=== PATIENT | female | born 1975 | race Caucasian/White ===

== ENCOUNTER 2017-02-06 14:55 | Emergency (ER) | payer OTHER ==
[~2017-02-06] VITALS: Ht 170.2 cm; Wt 88.5 kg
[2017-02-06 17:20] LABS: ADD MIUA? YES; BILIRUBIN NEGATIVE; BLOOD SMALL; COLOR YELLOW ((YELLOW)); GLUCOSE (STRIP) NEGATIVE; KETONES NEGATIVE; LEUKOCYTES TRACE; NITRITE NEGATIVE; PROTEIN (STRIP) NEGATIVE; SPECIFIC GRAVITY 1.018 (1.000-1.030); UROBILINOGEN 0.2 MG/DL (0.2-1.0)
[2017-02-06 17:27] LABS: BACTERIA NONE SEEN /HPF; EPITHELIAL CELLS RARE /HPF; MUCUS TRACE /LPF; RED BLOOD CELLS 0-5 /HPF (0-5); WHITE BLOOD CELLS 0-5 /HPF (0-5)
[2017-02-06] MEDS ORDERED: IMITREX50 MG PO (18:04)
[2017-02-06] MEDS ORDERED: FIORICET 50-301 EACH PO (18:04)
[2017-02-06] MEDS ORDERED: NAPROSYN500 MG PO (18:04)
[2017-02-06 18:43] VITALS: BP 120/66
== END 2017-02-06 18:45 | disposition home or self-care (01) ==
LOC: EXP 14:55 → EME 14:55 → EXP 18:45
PROVIDERS: Physician Assistant
DX: G43.909 Migraine, unspecified, not intractable, without status migrainosus (principal); F17.200 Nicotine dependence, unspecified, uncomplicated
CPT/HCPCS: 81003; 99281; 99285; J1200; J1885; J2765; J2930; J7030

== ENCOUNTER 2017-06-06 10:15 | Emergency (ER) | payer OTHER ==
[~2017-06-06] VITALS: Ht 170.2 cm; Wt 85.3 kg
[~2017-06-06 10:15] MED LIST: FIORICET 50-301 EACH PO; IMITREX50 MG PO; NAPROSYN500 MG PO
[2017-06-06] MEDS ORDERED: ABILIFY5 MG PO ×2 (11:41→12:07)
[2017-06-06] MEDS ORDERED: CYMBALTA20 MG PO ×2 (11:41→12:07)
[2017-06-06] MEDS ORDERED: VISTARIL25 MG PO (12:07)
[2017-06-06 12:29] VITALS: BP 123/80
== END 2017-06-06 12:31 | disposition home or self-care (01) ==
LOC: EME 10:15
DX: Z76.0 Encounter for issue of repeat prescription (principal); F31.9 Bipolar disorder, unspecified; F41.9 Anxiety disorder, unspecified; F17.200 Nicotine dependence, unspecified, uncomplicated
CPT/HCPCS: 90832; 99281; 99284

== ENCOUNTER 2017-06-13 09:14 | Emergency (ER) | payer OTHER ==
[~2017-06-13] VITALS: Ht 170.2 cm; Wt 84.7 kg
[~2017-06-13 09:14] MED LIST changes: +ABILIFY5 MG PO; +CYMBALTA20 MG PO; +VISTARIL25 MG PO
[2017-06-13] MEDS ORDERED: IMITREX25 MG PO (11:11)
[2017-06-13] MEDS ORDERED: REGLAN10 MG PO (11:11)
[2017-06-13 11:30] VITALS: BP 119/71
== END 2017-06-13 11:32 | disposition home or self-care (01) ==
LOC: EME 09:14
DX: G43.909 Migraine, unspecified, not intractable, without status migrainosus (principal); F17.200 Nicotine dependence, unspecified, uncomplicated
CPT/HCPCS: 99281; 99284; J2765; J3030

== ENCOUNTER 2017-08-19 17:29 | Emergency (ER) | payer OTHER ==
[~2017-08-19] VITALS: Ht 170.2 cm; Wt 87.0 kg
[~2017-08-19 17:29] MED LIST changes: +IMITREX25 MG PO; +REGLAN10 MG PO
[2017-08-19] MEDS ORDERED: NORCO 5/3251 TABLET PO (19:34)
[2017-08-19 19:44] VITALS: BP 131/70
== END 2017-08-19 19:44 | disposition home or self-care (01) ==
LOC: EME 17:29
DX: S80.01XA Contusion of right knee, initial encounter (principal); W18.2XXA Fall in (into) shower or empty bathtub, initial encounter; Y93.E1 Activity, personal bathing and showering; Z98.890 Other specified postprocedural states; F41.9 Anxiety disorder, unspecified; F17.200 Nicotine dependence, unspecified, uncomplicated
CPT/HCPCS: 73564; 99281; 99284

== ENCOUNTER 2017-10-18 04:42 | Emergency (ER) | payer OTHER ==
[~2017-10-18] VITALS: Ht 170.2 cm; Wt 86.5 kg
[~2017-10-18 04:42] MED LIST changes: +NORCO 5/3251 TABLET PO
[2017-10-18 05:01] LABS: HEMATOCRIT 39.6 % (36.0-46.0); HEMOGLOBIN 13.8 G/DL (11.9-15.5); MCH 31.5 PG (29.0-34.0); MCHC 34.8 G/DL (30.0-36.0); MCV 90.4 FL (83-99); PLATELET COUNT 204 K/uL (156-360); RBC DIS.WIDTH-CV 12.6 % (11.8-14.6); RBC DIS.WIDTH-SD 41.6 % (39-53); RED BLOOD COUNT 4.38 M/uL (3.80-5.20); WHITE BLOOD COUNT 8.9 K/uL (4.1-10.2)
[2017-10-18 05:10] LABS: ALBUMIN 4.1 g/dL (3.2-4.8); CHLORIDE 108 mEq/L (99-109); POTASSIUM 3.8 mEq/L (3.7-5.4); SODIUM 143 mEq/L (136-147)
[2017-10-18 05:12] LABS: GLUCOSE 133 mg/dL (70-99); TOTAL PROTEIN 6.9 g/dL (6.4-8.3)
[2017-10-18 05:14] LABS: TOTAL BILIRUBIN 0.2 mg/dL (0.0-1.0)
[2017-10-18 05:16] LABS: ALKALINE PHOSPHATASE 91 IU/L (3-129); CREATININE 0.7 mg/dL (0.6-1.3); GFR ESTIMATE (CALCULATED) > 59 mL/min/
[2017-10-18 05:17] LABS: UREA NITROGEN (BUN) 16 mg/dL (9-23)
[2017-10-18 05:18] LABS: AST (GOT) 9 IU/L (2-34)
[2017-10-18 05:19] LABS: ALT (GPT) 9 IU/L (3-49); LIPASE 47 U/L (1.0-51.0)
[2017-10-18 05:26] LABS: QUANTITATIVE HCG < 4.0 MIU/ML
[2017-10-18 05:28] LABS: APPEARANCE CLOUDY ((CLEAR)); BILIRUBIN SMALL; BLOOD NEGATIVE; COLOR AMBER ((YELLOW)); GLUCOSE (STRIP) NEGATIVE; KETONES 5; LEUKOCYTES NEGATIVE; NITRITE NEGATIVE; PROTEIN (STRIP) NEGATIVE; SPECIFIC GRAVITY 1.032 (1.000-1.030)
[2017-10-18 05:45] LABS: BACTERIA RARE /HPF; CALCIUM OXALATE CRYSTALS 3+ /HPF; EPITHELIAL CELLS RARE /HPF; MUCUS NONE SEEN /LPF; RED BLOOD CELLS 0-5 /HPF (0-5); UCUL ADDED? NO; WHITE BLOOD CELLS 0-5 /HPF (0-5)
[2017-10-18] MEDS ORDERED: PERCOCET 5/31 TABLET PO (08:42)
[2017-10-18 08:58] VITALS: BP 97/52
== END 2017-10-18 09:15 | disposition home or self-care (01) ==
LOC: EME → EDBD 04:42 → EME 09:15
PROVIDERS: Emergency Medicine
DX: N83.201 Unspecified ovarian cyst, right side (principal); Z90.721 Acquired absence of ovaries, unilateral; R35.0 Frequency of micturition; E86.0 Dehydration; R00.0 Tachycardia, unspecified; F17.200 Nicotine dependence, unspecified, uncomplicated
CPT/HCPCS: 74177; 76856; 80053; 81003; 83690; 84702; 85027; 99281; 99285; J1885; J2405; J3010; J7030